=== PATIENT | male | born 1960 | race Caucasian/White ===

== ENCOUNTER 2017-12-10 02:21 | Emergency (ER) | payer OTHER ==
[2017-12-10 02:45] LABS: BASOPHILS # (AUTO) 0.1 10^3/uL (0.0-0.1); BASOPHILS % (AUTO) 0.8 %; EOSINOPHILS # (AUTO) 0.1 10^3/uL (0.0-0.7); HGB - HEMOGLOBIN 11.4 g/dL (14.0-18.0); LYMPHOCYTES # (AUTO) 0.8 10^3/uL (1.5-3.5); LYMPHOCYTES % (AUTO) 10.3 %; MEAN CORPUSCULAR HEMOGLOBIN 27.4 pg (27.0-31.0); MEAN CORPUSCULAR HGB CONC 29.6 g/dL (32.0-36.0); MEAN CORPUSCULAR VOLUME 92.8 fL (80.0-94.0); MEAN PLATELET VOLUME 9.5 fL (7.4-11.4); MONOCYTES # (AUTO) 0.4 10^3/uL (0.0-1.0); MONOCYTES % (AUTO) 5.5 %; NEUTROPHILS # (AUTO) 6.2 10^3/uL (1.5-6.6); NEUTROPHILS % (AUTO) 82.4 %; PLT - PLATELET COUNT 106 10^3/uL (130-450); RED BLOOD COUNT 4.17 10^6/uL (4.70-6.10); RED CELL DISTRIBUTION WIDTH 17.4 % (12.0-15.0); WHITE BLOOD COUNT 7.5 x10^3/uL (4.8-10.8)
[2017-12-10 02:53] LABS: ALBUMIN 4.8 g/dL (3.2-5.5); ALBUMIN/GLOBULIN RATIO 1.8 (1.0-2.2); BILIRUBIN,TOTAL 1.6 mg/dL (0.2-1.0); CALCIUM 9.2 mg/dL (8.5-10.3); TOTAL PROTEIN 7.4 g/dL (6.7-8.2)
--- NOTE | 2017-12-10 03:29 | ED Physician Documentation ---
PD HPI ABD PAIN - Stated complaint Stated Complaint: ABD PX - Chief complaint Chief Complaint: Abd Pain - History obtained from History obtained from: Patient - History of Present Illness Timing - onset: Enter time (2300), Last night Timing - duration: Hours Timing - details: Abrupt onset, Still present Quality: Sharp, Pain Location: RLQ Radiation: Right flank Improved by: Laying still Worsened by: Moving, Position, Palpation Similar symptoms before: Diagnosis (kidney stone) Recently seen: Not recently seen - Additional information Additional information: 57 y/o male awoke at 11 pm with acute RLQ abdominal pain. The pain started at a 6 and increased to a 9 by the time they were on their way to the hospital. He was not sick earlier in the day and he feels the pain is some better with sitting up and leaning forward and worse with laying back. Review of Systems Constitutional: denies: Fever Eyes: denies: Decreased vision Ears: denies: Ear pain Nose: denies: Congestion Throat: denies: Sore throat Cardiac: denies: Chest pain / pressure, Palpitations Respiratory: denies: Dyspnea, Cough GI: reports: Abdominal Pain. denies: Nausea, Vomiting, Constipation, Diarrhea : denies: Dysuria, Frequency Skin: denies: Rash Musculoskeletal: reports: Back pain. denies: Neck pain, Extremity pain Neurologic: denies: Generalized weakness, Focal weakness, Numbness PD PAST MEDICAL HISTORY - Past Medical History Past Medical History: Yes Cardiovascular: Hypertension, High cholesterol Endocrine/Autoimmune: Type 2 diabetes : Benign prostate hypertrophy Psych: Anxiety Other Past Medical History: Hx of Stage 3 Melanoma - Past Surgical History Past Surgical History: Yes General: Cholecystectomy - Present Medications Home Medications: Ambulatory Orders Medication Instructions Recorded Confirmed Atorvastatin Calcium 1 tab PO DAILY 12/10/17 12/10/17 Benazepril HCl 1 tab PO DAILY 12/10/17 12/10/17 HYDROcod/ACETAM 5/325 [[place] 5/325] 1 - 2 ea PO Q6H PRN #15 tablet 12/10/17 Linagliptin [Tradjenta] 1 tab PO DAILY 12/10/17 12/10/17 Metformin HCl 1 tab PO DAILY 12/10/17 12/10/17 Sertraline HCl 1 tab PO DAILY 12/10/17 12/10/17 Tamsulosin [Flomax] 1 tab PO DAILY 12/10/17 12/10/17 glipiZIDE [Glipizide] 1 tab PO DAILY 12/10/17 12/10/17 - Allergies Allergies/Adverse Reactions: Allergies Allergy/AdvReac Type Severity Reaction Status Date / Time Penicillins Allergy Anaphylaxis Verified 12/10/17 02:42 - Social History Does the pt smoke?: No Smoking Status: Never smoker Does the pt drink ETOH?: Yes Does the pt have substance abuse?: No - Immunizations Immunizations are current?: Yes - POLST Patient has POLST: No PD ED PE NORMAL - Vitals Vital signs reviewed: Yes (hypertensive ) - General General: Alert and oriented X 3, Well developed/nourished, Other (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 ) - HEENT HEENT: Atraumatic, PERRL, EOMI - Neck Neck: Supple, no meningeal sign - Cardiac Cardiac: RRR, Other (2/6 holosystolic murmer at LSB) - Respiratory Respiratory: No respiratory distress, Clear bilaterally - Abdomen Abdomen: Soft, Other (There is specific right sided tenderness over the right flank and right lower quadrant. The right kidney is sonographically tender, reproduces the symptoms the patient is having and there is some mild hydro presnt. ) - Back Back: No spinal TTP, Other (R CVA tenderness ) - Derm Derm: Normal color, Warm and dry, No rash - Neuro Neuro: Alert and oriented X 3, No motor deficit, No sensory deficit, Normal speech Eye Opening: Spontaneous Motor: Obeys Commands Verbal: Oriented GCS Score: 15 - Psych Psych: Normal mood Results - Vitals Vitals: Vital Signs - 24 hr 12/10/17 12/10/17 02:25 04:20 Temperature 36.0 C L Heart Rate 70 69 Respiratory 16 16 Rate Blood Pressure 158/80 H 146/82 H O2 Saturation 89 L Oxygen O2 Source Room air - Labs Labs: Laboratory Tests 12/10/17 12/10/17 12/10/17 02:30 02:30 03:33 WBC 7.5 RBC 4.17 L Hgb 11.4 L Hct 38.7 L MCV 92.8 MCH 27.4 MCHC 29.6 L RDW 17.4 H Plt Count 106 L MPV 9.5 Neut # 6.2 Lymph # 0.8 L [place] # 0.4 Eos # 0.1 Baso # 0.1 Absolute Nucleated RBC 0.00 Nucleated RBC % 0.0 Sodium 133 L Potassium 4.1 Chloride 97 L Carbon Dioxide 23 Anion Gap 13.0 BUN 20 Creatinine 1.0 Estimated GFR (MDRD) 78 L Glucose 408 H Calcium 9.2 Total Bilirubin 1.6 H AST 33 ALT 34 Alkaline Phosphatase 63 Total Protein 7.4 Albumin 4.8 Globulin 2.6 Albumin/Globulin Ratio 1.8 Lipase 14 L Urine Color ORANGE Urine Clarity CLEAR Urine pH 6.0 Ur Specific [place] 1.020 Urine Protein NEGATIVE Urine Glucose (UA) >=1000 H Urine Ketones NEGATIVE Urine Occult Blood MODERATE H Urine Nitrite NEGATIVE Urine Bilirubin NEGATIVE Urine Urobilinogen 1 (NORMAL) Ur Leukocyte Esterase NEGATIVE Urine RBC 6-10 H Urine WBC 0-3 Ur Squamous Epith Cells RARE Squamous Urine Bacteria Rare Urine Mucus Few Strands Ur Microscopic Review INDICATED Urine Culture Comments NOT INDICATED - Rads (name of study) CT abd/pel without Radiology: Prelim report reviewed (Impression: 1. Mildly to moderately obstructing 2 mm stone at the right ureteropelvic junction. 2. Marked splenomegaly. 3. Colonic diverticula without evidence of diverticulitis 4. borderline cardiomegaly. 5. Appendix appears normal.), EMP read indepedently, See rad report Procedures - Bedside sono Bedside sono by EMP: With use of bedside ultrasound the right kidney is imaged it is sonographically tender there is a questionable mild hydronephrosis. - IVC sono (time) 0330 Bedside IVC sono: IVC measures (cm) (0.77), IVC collapsed c insp (cm) (complete) , Dehydration (est 2 liter deficit) PD MEDICAL DECISION MAKING - ED course Complexity details: reviewed results, re-evaluated patient, considered differential, d/w patient, d/w family ED course: 57-year-old male with acute onset of right-sided abdominal pain comes into the emergency department with tenderness on exam and evidence of hydronephrosis on bedside exam. CT examination of the abdomen and pelvis shows a normal- appearing appendix and a 2 mm stone at the right ureteral pelvic junction. Urinalysis shows blood without evidence of infection. He is treated in the emergency department with a liter of saline 30 mg of Toradol 4 mg of Zofran and has some improvement in his pain. He has further improvement with use of hydromorphone. We will send him home with some pain medication and await passage of the stone. Departure - Departure Disposition: Home, Self Care Clinical Impression: Ureterolithiasis Condition: Stable Instructions: ED Stone Renal W Colic Follow-Up: Your, doctor [Other] Prescriptions: HYDROcod/ACETAM 5/325 [[place] 5/325] 1 - 2 ea PO Q6H PRN #15 tablet PRN Reason: Pain
[2017-12-10 03:38] LABS: GLUCOSE, URINE (UA) >=1000 mg/dL (NEGATIVE); KETONES,URINE (UA) NEGATIVE (NEGATIVE); LEUKOCYTE ESTERASE, URINE NEGATIVE (NEGATIVE); NITRITE,URINE NEGATIVE (NEGATIVE); OCCULT BLOOD,URINE MODERATE (NEGATIVE); PROTEIN,URINE NEGATIVE (NEGATIVE); UROBILINOGEN,URINE 1 (NORMAL) E.U./dL (NORMAL)
[2017-12-10 03:41] LABS: BILIRUBIN,URINE NEGATIVE (NEGATIVE); CLARITY,URINE CLEAR (CLEAR); ICTOTEST,URINE NEGATIVE
[2017-12-10 03:45] LABS: BACTERIA,URINE Rare /HPF (None Seen); MUCUS,URINE Few Strands; SQUAMOUS EPITHELIAL CELL,UR RARE Squamous (<= Few)
[2017-12-10] MEDS ORDERED: ONDANSETRON 4 MG/2 ML VIAL IVP STA (03:52)
[2017-12-10] MEDS ORDERED: SODIUM CHLORIDE 0.9% 1,000 ML IV ONE (03:52)
[2017-12-10] MEDS ORDERED: KETOROLAC 60 MG/2 ML VIAL IVP STA (03:52)
--- NOTE | 2017-12-10 04:42 | CT Report ---
EXAM: CT ABDOMEN AND PELVIS (CT KUB) EXAM DATE: 12/10/2017 04:30 AM. CLINICAL HISTORY: Right flank and right lower quadrant tenderness. . COMPARISONS: None. TECHNIQUE: Routine axial helical CT imaging was performed through the abdomen and pelvis without IV c ontrast. Reconstructions: Coronal and sagittal. In accordance with CT protocol optimization, one or more of the following dose reduction techniques w ere utilized for this exam: automated exposure control, adjustment of mA and/or KV based on patient s ize, or use of iterative reconstructive technique. FINDINGS: Lung Bases: Bibasilar atelectasis. Borderline cardiomegaly. Small hiatal hernia. Right Kidney/Ureter: No stones are seen in the kidney. Mildly to moderately obstructing 2 mm stone at the ureteropelvic junction, series 3 image 80. Left Kidney/Ureter: No stones, hydronephrosis, or hydroureter. No perinephric fat stranding. Other Solid Organs: No focal lesions are seen in the liver on this noncontrast examination. Spleen is markedly enlarged at 22.6 cm. Pancreas and adrenals are unremarkable. Gallbladder/Bile Ducts: Status post cholecystectomy. Peritoneal Cavity: No bowel obstruction seen. There are some colonic diverticula but no diverticuliti s is identified. No free air or free fluid is seen. No lymphadenopathy is identified. Appendix appear s normal. Pelvic Organs: No bladder stones or wall thickening. Noncontrast images of the visualized pelvic orga ns are unremarkable. Vasculature: Mild atherosclerosis. No aortic aneurysm. Other: None. IMPRESSION: 1. Mildly to moderately obstructing 2 mm stone at the right ureteropelvic junction. 2. Marked splenomegaly. 3. Colonic diverticula without evidence of diverticulitis. 4. Borderline cardiomegaly. 5. Appendix appears normal. [facility] Referring Provider Line: [phone] SITE ID: [id number]
[2017-12-10] MEDS ORDERED: HYDROmorphone 1 MG/ML SYRINGE IVP STA (04:53)
[2017-12-10 05:17] VITALS: BP 133/60
== END 2017-12-10 05:18 | disposition home or self-care (01) ==
LOC: ED 02:21
DX: N20.1 Calculus of ureter (principal); I10 Essential (primary) hypertension; E78.00 Pure hypercholesterolemia, unspecified; E11.9 Type 2 diabetes mellitus without complications; Z79.84 Long term (current) use of oral hypoglycemic drugs; Z85.820 Personal history of malignant melanoma of skin
CPT/HCPCS: 74176; 80053; 81001; 83690; 85025; 96361; 96374; 96375; 99283; 99284; J1170; 81003; 87086

== ENCOUNTER 2018-01-22 16:56 | Emergency (ER) | payer OTHER ==
[2018-01-22] MEDS ORDERED: BUFFERED LIDOCAINE 10 ML SYRINGE SUBQ STA (17:39)
--- NOTE | 2018-01-22 17:41 | ED Physician Documentation ---
PD HPI LOWER EXT INJURY - Stated complaint Stated Complaint: L FOOT INJ - Chief complaint Chief Complaint: Laceration - History obtained from History obtained from: Patient - History of Present Illness PD HPI LOW EXT INJURY LOCATION: Other (He was working at home and dropped to toilet, it shattered and he has a laceration on the left fourth toe and pain there. Tetanus is up-to-date.) Review of Systems Constitutional: reports: Reviewed and negative Cardiac: reports: Reviewed and negative Respiratory: reports: Reviewed and negative PD PAST MEDICAL HISTORY - Past Medical History Cardiovascular: Hypertension, High cholesterol Endocrine/Autoimmune: Type 2 diabetes : Benign prostate hypertrophy Psych: Anxiety - Past Surgical History Past Surgical History: Yes General: Cholecystectomy - Present Medications Home Medications: Ambulatory Orders Medication Instructions Recorded Confirmed Atorvastatin Calcium 1 tab PO DAILY 12/10/17 12/10/17 Benazepril HCl 1 tab PO DAILY 12/10/17 12/10/17 HYDROcod/ACETAM 5/325 [[place] 5/325] 1 - 2 ea PO Q6H PRN #15 tablet 12/10/17 Linagliptin [Tradjenta] 1 tab PO DAILY 12/10/17 12/10/17 Metformin HCl 1 tab PO DAILY 12/10/17 12/10/17 Sertraline HCl 1 tab PO DAILY 12/10/17 12/10/17 Tamsulosin [Flomax] 1 tab PO DAILY 12/10/17 12/10/17 glipiZIDE [Glipizide] 1 tab PO DAILY 12/10/17 12/10/17 - Allergies Allergies/Adverse Reactions: Allergies Allergy/AdvReac Type Severity Reaction Status Date / Time codeine Allergy Nausea Verified 01/22/18 17:04 Penicillins Allergy Anaphylaxis Verified 01/22/18 17:04 - Social History Does the pt smoke?: No Smoking Status: Never smoker Does the pt drink ETOH?: Yes Does the pt have substance abuse?: No - Immunizations Immunizations are current?: Yes - POLST Patient has POLST: No PD ED PE NORMAL - Vitals Vital signs reviewed: Yes - General General: Alert and oriented X 3, No acute distress - Extremities Extremities: Other (Tenderness of the third and fourth toes of the left foot and on the tip of the fourth toe there is a 1.5 cm flap laceration on the medial side not involving the nail bed.) - Neuro Neuro: Alert and oriented X 3, Normal speech Results - Vitals Vitals: Vital Signs - 24 hr 01/22/18 17:00 Temperature 36.8 C Heart Rate 88 Respiratory 16 Rate Blood Pressure 162/78 H O2 Saturation 90 L Oxygen O2 Source Room air Procedures - Laceration (location) L 4th toe Length in cm: 2 Wound type: Curved, Into subcut fat Neurovascular status: Sensory intact, Motor intact, Vascular intact Anesthesia: Lidocaine 1% Wound Preparation: Chlorhexadine, Irrigated copiously NS Skin layer closure: Nylon, Interrupted, Size #-0 - enter number (5-0), Sutures - enter # (7) Other: Patient tolerated well, Tetanus UTD Departure - Departure Disposition: 01 Home, Self Care Clinical Impression: Laceration Condition: Good Record reviewed to determine appropriate education?: Yes Instructions: ED Laceration All Comments: Come back for any signs of infection which would include: Redness, swelling, drainage, increased pain, or fevers. Follow-up with your physician in 14 days for suture removal. Your blood pressure was elevated today on check into the emergency department. This does not mean that you have hypertension, it is a common phenomenon to come to the emergency department and have elevated blood pressure. I recommend that you see your primary care physician within the week to have it rechecked when you are feeling better.
--- NOTE | 2018-01-22 17:50 | XRAY Preliminary Report ---
Exam: XR FOOT 3 VIEW LT IMPRESSION: No acute osseous abnormality. [facility] SITE ID: [id number]
--- NOTE | 2018-01-22 18:11 | XRAY Report ---
EXAM: LEFT FOOT RADIOGRAPHY EXAM DATE: 01/22/2018 05:19 PM. CLINICAL HISTORY: Trauma. COMPARISON: None. TECHNIQUE: 3 views. FINDINGS: Bones: No acute displaced fracture. No suspicious focal osseous lesion. Normal variant fusion of the middle and distal fifth phalanges. Small enthesophyte at the Achilles insertion. Joints: No subluxation/dislocation. Minimal degenerative change present at the first MTP joint. Soft Tissues: No focal soft tissue swelling appreciated. Presumed vascular calcification evident on f rontal view and the first-second metatarsal interspace. IMPRESSION: No acute osseous abnormality. [facility] Referring Provider Line: [phone] SITE ID: [id number]
[2018-01-22 18:27] VITALS: BP 151/79
== END 2018-01-22 18:31 | disposition home or self-care (01) ==
LOC: ED 16:56
DX: S91.115A Laceration without foreign body of left lesser toe(s) without damage to nail, initial encounter (principal); W22.8XXA Striking against or struck by other objects, initial encounter; Y92.009 Unspecified place in unspecified non-institutional (private) residence as the place of occurrence of the external cause; I10 Essential (primary) hypertension; E78.00 Pure hypercholesterolemia, unspecified; E11.9 Type 2 diabetes mellitus without complications; Z79.84 Long term (current) use of oral hypoglycemic drugs
CPT/HCPCS: 12001; 99282; 99283